=== PATIENT | male | born 1940 | race Caucasian/White ===

== ENCOUNTER 2017-04-03 09:57 | Outpatient (CLI) | payer MEDICARE ==
--- NOTE | 2017-04-03 13:21 | MRI ---
MRI OF LEFT THIGH PERFORMED WITHOUT CONTRAST ENHANCEMENT: History: Patient has had previous hip surgery. Having midthigh weakness for two years. FINDINGS: A left hip prosthesis is present and causes some artifact related to the prosthesis. I do not see an y signs of fracture or any abnormal marrow edema change that would suggest loosening. The muscular groups are symmetric. I do not appreciate any evidence for atrophy. I do not see any si gns of any type of compartment syndrome. Some mild tendinopathy changes of the hamstring tendon origin. There are no signs of any muscle edema or suggestion of any type of denervation type process. No sup erficial soft tissue swelling. IMPRESSION: Left hip prosthesis in place. No acute abnormality of the thigh. No signs of muscle atrophy. POS: OFF
== END 2017-04-03 09:58 | disposition home or self-care (01) ==
LOC: SCSMRI 09:57
PROVIDERS: ATTEND Family Medicine
DX: R29.898 Other symptoms and signs involving the musculoskeletal system (principal)

== ENCOUNTER 2017-05-27 09:22 | Outpatient (CLI) | payer MEDICARE ==
[2017-05-27 10:37] LABS: #Eosinphils 0.1 thou/uL (0.0-0.7); #Lymphocytes 1.3 thou/uL (1.20-3.40); #Monocytes 0.6 thou/uL (0.11-0.59); #Neutrophils 5.5 thou/uL (1.40-6.50); %Basophils 0.5 % (0.0-1.0); %Eosinophils 1.4 % (0.0-10.0); %Lymphocytes 17.2 % (21.0-51.0); %Monocytes 7.5 % (0.0-10.0); Hematocrit 47.5 % (42.0-52.0); Mean Platelet Volume 8.4 fL (7.4-10.4); Red Blood Cell (RBC) Count 4.77 mill/uL (4.70-6.10); White Blood Cell (WBC) Count 7.4 thou/uL (4.8-10.8)
[2017-05-27 10:51] LABS: ALT (SGPT) 17 U/L (8-55); AST (SGOT) 22 U/L (5-34); Alkaline Phosphatase 96 U/L (40-150); Anion Gap 10 mmol/L (10-20); BUN (Urea Nitrogen) 25 mg/dL (8.4-25.7); Bilirubin, Total 0.7 mg/dL (0.2-1.2); Calc. Creatinine Clearance 0 mL/min (70-130); Carbon Dioxide 26 mmol/L (23-31); Chloride 107 mmol/L (98-107); Estimated GFR-MDRD 49; Globulin 2.9 g/dL (2.4-3.5); Protein, Total 6.6 g/dL (5.8-8.1)
--- NOTE | 2017-05-27 16:42 | EKG ---
Test Reason : Blood Pressure : / mmHG Vent. Rate : 056 BPM Atrial Rate : 056 BPM P-R Int : 180 ms QRS Dur : 088 ms QT Int : 434 ms P-R-T Axes : 040 107 048 degrees QTc Int : 418 ms Sinus bradycardia Rightward axis Cannot rule out Anterior infarct (cited on or before 08-MAY-2016) Abnormal ECG Confirmed by DARCIE SAENZ ([id number]) on 05/27/2017 4:41:33 PM Referred By: SHEILA Confirmed By:DARCIE SAENZ
== END 2017-05-27 09:23 | disposition home or self-care (01) ==
LOC: LABBT 09:22
PROVIDERS: ATTEND Surgery
DX: Z01.818 Encounter for other preprocedural examination (principal); K40.90 Unilateral inguinal hernia, without obstruction or gangrene, not specified as recurrent
CPT/HCPCS: 80053; 85025; 93005; 93010

== ENCOUNTER 2017-06-04 07:33 | Day surgery (SDC) | payer MEDICARE ==
[2017-05-27 09:35] VITALS: BMI 26.6
[2017-06-04] MEDS ORDERED: CEFAZOLIN/Water 2 GM/20 ML SYRINGE ONE (08:21)
[2017-06-04] MEDS ORDERED: Lidocaine 2% PF 5 ML VIAL ONE (08:58)
[2017-06-04] MEDS ORDERED: Bupivacaine/Epinephrine 0.25% 30 ML VIAL ONE (08:58)
[2017-06-04] MEDS ORDERED: Midazolam HCl 2 mg/2 ml Vial ONE (08:59)
[2017-06-04] MEDS ORDERED: Fentanyl 250 MCG/5 ML VIAL ONE (08:59)
--- NOTE | 2017-06-04 11:10 | OP ---
PREOPERATIVE DIAGNOSIS: Recurrent right inguinal hernia. SURGEON: Cristhian Berger M.D. PROCEDURE PERFORMED: Recurrent right inguinal hernia repair with mesh. INDICATIONS: This is a 77-year-old male who had a hernia repair about 20 years ago without mesh. He had recurrent bulge. FINDINGS: He had both an indirect and a direct inguinal hernia. PROCEDURE IN DETAIL: After informed consent was obtained, the patient was taken to the operating hortencia m and given general mask anesthesia, placed in the supine position. His skin was prepped and draped in the usual fashion. Local anesthesia infiltrated subcutaneously and deep and a transverse right in guinal incision was performed. The subcu divided sharply. There was quite a bit of scar. Eventuall y was able to find the external oblique fascia incised in the direction of its fibers through the ext ernal ring. The spermatic cord was then isolated with a [place] drain. There was an indirect hernia sac that was dissected from surrounding cord structures down to the internal ring. He also had a di rect inguinal hernia. Both of these were reduced and reduction was maintained utilizing a PHS hernia system, which was placed in the preperitoneal space, anterior laid out, sutured to the pubic tubercl e with a 2-0 Prolene suture, tucked under the external oblique fascia laterally. A notch was cut out for the spermatic cord. Hemostasis was assured. The external oblique fascia closed with a running 3-0 Vicryl. Sreekanth's closed with interrupted 3-0 Vicryl and the skin closed with a running subcuticu lar 4-0 Rapide. Steri-Strips applied. Sterile bandage applied. The patient tolerated the procedure well and transferred to recovery in good condition. Sponge and needle count verified correct x2.
[2017-06-04] MEDS ORDERED: HYDROcodone/Acetaminophen 5/325 mg Tablet ONE (13:18)
[2017-06-04] MEDS ORDERED: ePHEDrine/0.9% NaCl/PF SYRINGE 50 mg/10 ml ONE (15:47)
[2017-06-04] MEDS ORDERED: Propofol 200 MG/20 ML VIAL ONE (15:47)
[2017-06-04] MEDS ORDERED: Lidocaine 1% PF 5 ML VIAL ONE (15:47)
[2017-06-04] MEDS ORDERED: Ondansetron HCl/PF 4 MG/2 ML Vial ONE (15:47)
== END 2017-06-04 13:20 | disposition home or self-care (01) ==
LOC: SDC 07:33
PROVIDERS: ATTEND Surgery
PROC: 0YU50JZ Supplement Right Inguinal Region with Synthetic Substitute, Open Approach (ICD-10-PCS; principal; 2017-06-04)
DX: K40.91 Unilateral inguinal hernia, without obstruction or gangrene, recurrent (principal); M16.10 Unilateral primary osteoarthritis, unspecified hip; K21.9 Gastro-esophageal reflux disease without esophagitis; M19.90 Unspecified osteoarthritis, unspecified site; Z88.5 Allergy status to narcotic agent; Z90.49 Acquired absence of other specified parts of digestive tract; Z95.5 Presence of coronary angioplasty implant and graft; Z96.642 Presence of left artificial hip joint; Z98.890 Other specified postprocedural states
CPT/HCPCS: 49520; C1781; J2001; J2250; J2405; J2704; J3010

== ENCOUNTER 2019-04-28 13:29 | Outpatient (CLI) | payer MEDICARE ==
--- NOTE | 2019-04-28 15:15 | MRI ---
MRI LUMBAR SPINE WITHOUT CONTRAST: INDICATIONS: Low back pain. TECHNIQUE: Multiplanar, multisequential imaging obtained. FINDINGS: The lumbar vertebrae maintain normal height. There is loss of disk space at L4-L5. Degenerative spurr ing at L3-L4 and L4-L5. Degenerative endplate changes at L4-L5. L1-L2: Mild broad-based disk bulge flattens the thecal sac. Mild facet hypertrophy. No significant ce ntral canal or foraminal stenosis. L2-L3: Mild disk bulge. Mild to moderate facet and ligamentous hypertrophy. Mild central canal stenos is. L3-L4: Broad-based disk bulge is more pronounced, flattening the thecal sac. Facet and ligamentous hy pertrophy is moderate. These changes result in moderate central canal stenosis. No significant forami nal stenosis. L4-L5: Posterior disk bulge and posterior spurring flatten the thecal sac. Mild facet hypertrophy. Mi ld right foraminal stenosis due to asymmetric disk osteophyte complex projecting to the right. L5-S1: Minimal disk bulge. No central canal or foraminal stenosis. There are prominent bilateral parapelvic cystic lesions seen involving the kidneys. When comparison i s made to a CT of 03/01/2013, similar findings were present at that time, indicating numerous large p arapelvic cysts. IMPRESSION: 1. 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 2. Mild to moderate central canal stenosis at L2-L3 and L3-L4 as described. POS: [facility]
== END 2019-04-28 13:30 | disposition home or self-care (01) ==
LOC: SCSMRI 13:29
PROVIDERS: ATTEND Family Medicine
DX: G57.22 Lesion of femoral nerve, left lower limb (principal); R15.9 Full incontinence of feces; M48.061 Spinal stenosis, lumbar region without neurogenic claudication
CPT/HCPCS: 72148

== ENCOUNTER 2023-01-06 08:32 | Outpatient (CLI) | payer MEDICARE | END 2023-01-06 08:33 | disposition home or self-care (01) | LOC: SCSMRI 08:32 | PROVIDERS: ATTEND Psychiatry & Neurology Neurology | DX: M48.061 Spinal stenosis, lumbar region without neurogenic claudication (principal); M51.36 Other intervertebral disc degeneration, lumbar region | CPT/HCPCS: 72148 ==

== ENCOUNTER 2023-01-29 12:09 | Outpatient (CLI) | payer MEDICARE | END 2023-01-29 12:10 | disposition home or self-care (01) | LOC: SCSMRI 12:09 | PROVIDERS: ATTEND Psychiatry & Neurology Neurology | DX: M48.02 Spinal stenosis, cervical region (principal); M50.321 Other cervical disc degeneration at C4-C5 level; M50.322 Other cervical disc degeneration at C5-C6 level; M50.323 Other cervical disc degeneration at C6-C7 level; G95.29 Other cord compression | CPT/HCPCS: 72141 ==